=== PATIENT | male | born 1985 | race Caucasian/White ===

== ENCOUNTER 2016-10-27 08:31 | Outpatient (CLI) | payer OTHER | END 2016-10-27 08:32 | disposition home or self-care (01) | DX: M47.892 Other spondylosis, cervical region (principal); M50.222 Other cervical disc displacement at C5-C6 level ==

== ENCOUNTER 2018-10-07 16:00 | Emergency (ER) | payer OTHER ==
[2018-10-07] MEDS ORDERED: diphenhydrAMINE INJ 50 MG/ML VIAL IVP STA (19:32)
[2018-10-07] MEDS ORDERED: KETOROLAC 15 MG/ML VIAL IVP STA (19:32)
[2018-10-07] MEDS ORDERED: SODIUM CHLORIDE 0.9% 1,000 ML IV ONE (19:32)
[2018-10-07] MEDS ORDERED: METOCLOPRAMIDE 10 MG/2 ML VIAL IVP STA (19:32)
[2018-10-07 20:09] LABS: ALBUMIN 4.6 g/dL (3.2-5.5); ALBUMIN/GLOBULIN RATIO 1.4 (1.0-2.2); BILIRUBIN,TOTAL 1.3 mg/dL (0.2-1.0); CALCIUM 9.4 mg/dL (8.5-10.3); TOTAL PROTEIN 7.8 g/dL (6.7-8.2)
--- NOTE | 2018-10-07 20:46 | CT Report ---
Reason: ENGL[place] Procedure Date: 10/07/2018 Accession Number: [id number] / [id number] Procedure: CT - HEAD WO CPT Code: FULL RESULT: EXAM: CT HEAD EXAM DATE: 10/07/2018 08:28 PM. CLINICAL HISTORY: [place]GL[place]. COMPARISON: None. TECHNIQUE: Multiaxial CT images were obtained from the foramen magnum to the vertex. Reformats: Sagittal and coronal. IV contrast: None. In accordance with CT protocol optimization, one or more of the following dose reduction techniques were utilized for this exam: automated exposure control, adjustment of mA and/or KV based on patient size, or use of iterative reconstructive technique. FINDINGS: Parenchyma: No intraparenchymal hemorrhage. No evidence of mass, midline shift, or CT findings of infarction. Welsh-white differentiation is distinct. Extraaxial Spaces: Normal for age. No subdural or epidural collections identified. Ventricles: Normal in size and position. Sinuses and Orbits: Imaged paranasal sinuses, orbits, and mastoids show no significant abnormality. Bones: No evidence of fracture or calvarial defect. Other: None. IMPRESSION: No acute intracranial CT abnormality. RADIA
--- NOTE | 2018-10-07 21:25 | ED Physician Documentation ---
History of Present Illness - Stated complaint Stated Complaint: ENGL[place] - Chief complaint Chief Complaint: General - Additonal information Additional information: 33-year-old male presents the emergency department with a headache which started gradually yesterday and is progressively worsened. The patient reports pressure in his frontal area with light sensitivity. The patient denies any sudden onset, radiation into his neck, fevers, focal neurologic changes or relieving factors. No other associated symptoms. Symptoms are described as moderate. Similar to other headaches he has had in the past Review of Systems Constitutional: denies: Fever, Chills, Fatigue Eyes: reports: Photophobia. denies: Loss of vision, Decreased vision, Discharge Ears: denies: Ear pain Nose: denies: Congestion Throat: denies: Sore throat Cardiac: denies: Chest pain / pressure Respiratory: denies: Dyspnea GI: denies: Abdominal Pain : denies: Dysuria Skin: denies: Rash Musculoskeletal: denies: Neck pain Neurologic: denies: Generalized weakness Psychiatric: denies: Depressed PD PAST MEDICAL HISTORY - Past Medical History Past Medical History: Yes Neuro: Migraines Psych: Depression, Anxiety - Past Surgical History Past Surgical History: No - Present Medications Home Medications: Ambulatory Orders Medication Instructions Recorded Confirmed EPINEPHrine [Epipen] 0.3 mg IM ONCE PRN #1 syringe 12/01/14 EPINEPHrine [Epipen 2-Alec] 0.3 mg IJ ONCE PRN #1 packet 10/26/15 predniSONE [Prednisone] 60 mg PO DAILY 5 Days tablet 10/26/15 Metoclopramide [Reglan] 10 mg PO Q6H PRN #30 tablet 10/07/18 Naproxen 500 mg PO BID PRN #60 tablet 10/07/18 - Allergies Allergies/Adverse Reactions: Allergies Allergy/AdvReac Type Severity Reaction Status Date / Time No Known Drug Allergies Allergy Verified 12/01/14 00:58 - Social History Does the pt smoke?: Yes Smoking Status: Current every day smoker Does the pt drink ETOH?: Yes Does the pt have substance abuse?: No - Immunizations Immunizations are current?: Yes - POLST Patient has POLST: No PD ED PE NORMAL - General General: Alert and oriented X 3, No acute distress - HEENT HEENT: Atraumatic, PERRL, EOMI, Ears normal - Neck Neck: Supple, no meningeal sign - Cardiac Cardiac: RRR, Strong equal pulses - Respiratory Respiratory: No respiratory distress - Derm Derm: Normal color - Neuro Neuro: Alert and oriented X 3, Normal speech - Psych Psych: Normal mood, Normal affect Results - Vitals Vitals: Vital Signs - 24 hr 10/07/18 10/07/18 10/07/18 16:21 19:20 21:06 Temperature 35.9 C L Heart Rate 64 59 L 70 Respiratory 16 16 15 Rate Blood Pressure 132/72 H 137/94 H 123/67 O2 Saturation 98 96 96 Oxygen O2 Source Room air - Labs Labs: Laboratory Tests 10/07/18 19:45 Sodium 135 Potassium 3.9 Chloride 100 L Carbon Dioxide 27 Anion Gap 8.0 BUN 16 Creatinine 1.0 Estimated GFR (MDRD) 86 L Glucose 111 H Calcium 9.4 Total Bilirubin 1.3 H AST 25 ALT 28 Alkaline Phosphatase 51 Total Protein 7.8 Albumin 4.6 Globulin 3.2 Albumin/Globulin Ratio 1.4 Lipase 32 - Rads (name of study) CT Head Radiology: Final report received, See rad report (IMPRESSION: No acute in tracranial CT abnormality. ) PD MEDICAL DECISION MAKING - ED course ED course: On reevaluation the patient is resting comfortably and his symptoms are under much better control. The patient's CT scan does not show any significant abnormality. Presently, I think subarachnoid hemorrhage or meningitis is of low probability and a lumbar puncture would be of little diagnostic utility. Presently the patient appears appropriate for discharge and ongoing outpatient management. I discussed warning signs and recommended returning to the emergency department for any worsening or any concerns Departure - Departure Disposition: 01 Home, Self Care Clinical Impression: Headache Qualifiers: Headache type: unspecified Headache chronicity pattern: unspecified pattern Intractability: not intractable Qualified Code(s): R51 - Headache Condition: Good Instructions: ED Cephalgia Unspecified Follow-Up: Kimberly Moore PA-C [Primary Care Provider] - Prescriptions: Metoclopramide [Reglan] 10 mg PO Q6H PRN #30 tablet PRN Reason: Headache Naproxen 500 mg PO BID PRN #60 tablet PRN Reason: Pain Comments: Please return to the emergency department for worsening symptoms or any concerns
[2018-10-07 21:35] VITALS: BP 120/77
== END 2018-10-07 21:43 | disposition home or self-care (01) ==
LOC: ED 16:00
DX: R51 Headache (principal); F17.200 Nicotine dependence, unspecified, uncomplicated
CPT/HCPCS: 36415; 70450; 80053; 83690; 96374; 96375; 99283; J1200; J2765

== ENCOUNTER 2021-03-28 16:02 | Outpatient (CLI) | payer OTHER ==
--- NOTE | 2021-03-28 17:39 | XRAY Report ---
PROCEDURE: Lumbar Spine 2 View INDICATIONS: LUMBAR RADICULOPATHY TECHNIQUE: 3 views of the lumbar spine were acquired. COMPARISON: 05/18/2015 FINDINGS: No acute fracture identified. Straightening of the normal lordotic curvature. Scattered multilevel e ndplate spurring and diffuse facet arthropathy. Diffuse minimal narrowing of lumbar disc spaces. IMPRESSION: Minimal lumbar spondylosis which is grossly unchanged. Diffuse facet arthropathy, mildly progressed since 05/10/2015. Reviewed by: Marcelino Diaz MD on 03/28/2021 5:38 PM PDT Approved by: Marcelino Diaz MD on 03/28/2021 5:38 PM PDT Station ID: [id number]
== END 2021-03-28 23:59 | disposition home or self-care (01) ==
LOC: DI.N 16:02
PROVIDERS: ATTEND Family Medicine
DX: M47.816 Spondylosis without myelopathy or radiculopathy, lumbar region (principal)